=== PATIENT | male | born 1995 | race Caucasian/White ===

== ENCOUNTER → 2025-01-11 | Outpatient (CLI) | payer BC ==
--- NOTE | 2025-01-11 13:33 | CT ---
EXAMINATION TYPE: CT sinus w con DATE OF EXAM: 01/11/2025 1:23 PM COMPARISON: 12/15/2012. CLINICAL INDICATION: Male, 29 years old with history of J32.9 CHRONIC SINUSITIS, UNSPECIFIED; , sinus itis TECHNIQUE: Multiple thin axial images were obtained through the paranasal sinuses without the use of IV contrast. Additional coronal and sagittal reformatted images were submitted for evaluation. Contrast used:100 none Oral contrast used: none CT DLP: 590.10 mGycm, Automated exposure control for dose reduction was used. FINDINGS: Frontal sinuses: Normally developed with near complete opacification of the right frontal sinus.. Fro ntal Recess: Opacified on the right partially narrowing the left. Maxillary Sinuses: Normally developed with mild mucosal thickening bilaterally in the retention cyst present. Maxillary Infundibula([facility]): Mild narrowing due to mucosal thickening bilaterally., No Sandip cells id entified. Bone spurring noted in the inferior medial portion of the right globe. Ethmoid sinuses: Normally developed with scattered mucosal thickening.. Ethmoidal notch: Protected an d abutting the lateral lamina. Sphenoid sinuses: Normally developed and mild mucosal thickening. There is sellar sphenoid sinus pneu matization without evidence of dehiscence. No dehiscence of carotid canal. No evidence of optic nerv e dehiscence within the sphenoid sinus. No evidence of Onodi cells. Sphenoethmoidal recesses: Partia lly narrowed due to mucosal thickening. Nasal septum: Relatively straight with mild mucosal thickening. There is slight rightward deviation s uperiorly. Nasal Turbinates: Mild mucosal thickening of the middle and inferior turbinates left greater than rig ht. Mastoid air cells & middle ears: The air cells are clear. The middle ears are grossly unremarkable. Modified Soft tissues & Brain: Partially seen without gross abnormality. Globes are intact. Other: Cribriform plate demonstrates symmetric Keros classification type 2 cribriform plate. No evidence of bony dehiscence of skull base. Lamina papyracea is intact without evidence of remote orbital fracture or orbital prolapse into the e thmoid sinus. Visualized intracranial vasculature is without evidence for high-grade stenosis obstruction or occlus ion. No aneurysmal dilation. Remote injury to the right nasal bone. IMPRESSION: 1. Near complete opacification of the right frontal sinus with scattered mild to moderate paranasal s inus disease. 2. The ostiomeatal units are partially narrowed, the left frontonasal recesses pain the right is obst ructed and the sphenoethmoidal recesses are partially obstructed. [facility], , 01/11/2025 1:31 PM
== END | disposition home or self-care (01) ==
LOC: RADCTMAIN 12:55
DX: J32.9 Chronic sinusitis, unspecified (principal)
CPT/HCPCS: 70487; Q9967